=== PATIENT | female | born 1990 | race Caucasian/White ===

== ENCOUNTER 2022-12-24 10:13 | Emergency (ER) | payer BC, SELFPAY ==
--- NOTE | ~2022-12-24 | XR_ITS ---
XR shoulder LT min 2V 12/24/2022 10:46 Indication: Left shoulder pain after fall Procedure: 3 views left shoulder Comparison: No prior studies for comparison. Findings: There is a left humeral neck fracture with involvement of the greater tuberosity. Glenohume ral joint intact. Acromioclavicular joint and anatomic alignment. Mild soft tissue swelling. Impression: 1: Nondisplaced left humeral neck fracture with involvement of the greater tuberosity.. Reviewed, dictated and finalized at location L. Impression: 1: Nondisplaced left humeral neck fracture with involvement of the greater tube rosity..
[2022-12-24 10:19] VITALS: BP 135/100; PULSE 63; RESP 16; TEMP 36.8; O2SAT 100
--- NOTE | 2022-12-24 10:59 | ED.UPPEXIN ---
HPI - Extremity Injury (Upper) General Chief Complaint: Extremity Injury, Upper Stated Complaint: Left shoulder injury Time Seen by Provider: 12/24/22 10:48 Source: patient and RN notes reviewed Mode of arrival: ambulatory Limitations: no limitations History of Present Illness HPI narrative: This is a 32 year old right hand dominant female who presents for evaluation of left shoulder pain. She states that her dog saw a small animal and it pulled her down to the ground. She fell onto her left shoulder. She denies hitting her head or LOC. She denies neck pain. She denies numbness to her fingers. She denies any other injuries Related Data Allergies Allergy/AdvReac Type Severity Reaction Status Date / Time No Known Allergies Allergy Verified 12/24/22 10:21 Review of Systems Constitutional: Constitutional: Denies weakness Cardiovascular: Cardiovascular: Denies syncope, Denies rapid heart rate, Denies irregular heart rhythm, Denies leg edema and Denies dyspnea Respiratory: Respiratory: Denies chest congestion, Denies hemoptysis, Denies excessive phlegm production and Denies dyspnea Gastrointestinal: Gastrointestinal: Denies abdominal pain, Denies hematochezia, Denies diarrhea and Denies vomiting Genitourinary: Genitourinary: Denies hematuria and Denies dysuria Musculoskeletal: Musculoskeletal: Reports arthralgias, Denies joint swelling, Denies loss of height and Denies muscle weakness Neurologic: Denies syncope, Denies focal weakness and Denies weakness PMFSH Past Medical History Medical History (Updated 12/24/22 @ 18:30 by Shanice Velazquez MD) No significant medical problems Surgical History Surgical History (Updated 12/24/22 @ 18:31 by Shanice Velazquez MD) No pertinent past surgical history Social History Social History (Updated 12/24/22 @ 18:31 by Shanice Velazquez MD) Smoking status: Never smoker Exam Const: General: no acute distress and alert Nutritional Appearance: well nourished Orientation/consciousness: patient oriented x3 HENMT: Head: normal to inspection Face and sinus: normal facial exam Mouth: Yes Normal oral and palatal mucosa present and Yes lip normal Throat: posterior oropharynx normal and uvula midline Eyes: EOM: EOMs intact bilaterally Neck: Neck: normal visual inspection and no lymphadenopathy Other: no midline tenderness Chest: Chest palpation & inspection: normal inspection of the chest Resp: Effort & Inspection: normal respiratory effort Auscultation: clear to auscultation bilaterally Cardio: Rate: regular rate Rhythm: regular rhythm Heart sounds: no murmurs Other: strong bilateral radial pulse Skin: General skin exam: normal color Rashes: no rashes Wounds: no wounds Neuro: General: patient oriented x3, moves all extremities and CN's II-XI intact bilaterally Cranial nerves: Yes Nystagmus not present Speech: normal speech Gait exam (Neuro): Normal gait present Extrem: Other: left proximal shoulder tenderness, no deformity, able to move distally Psych: Mental Status: mental status grossly normal Affect: normal affect Attitude: cooperative Course Reevaluation(s) Reevaluation #1: I discussed with patient findings . she does not want IV for pain medication. She just wants oral medications. Date: 12/24/22 Time: 11:01 Consultations Consultation #1: Dr. Simon reviewed films and he states patient can be placed in sling and follow up in clinic Date: 12/24/22 Time: 11:03 Vital Signs Vital signs: Vital Signs Temperature 98.2 F 12/24/22 10:19 Pulse Rate 63 12/24/22 10:19 Respiratory Rate 16 12/24/22 10:19 Blood Pressure 135/100 H 12/24/22 10:19 Pulse Oximetry 100 12/24/22 10:19 Temperature 98.2 F 12/24/22 10:19 Pulse Rate 63 12/24/22 10:19 Respiratory Rate 16 12/24/22 10:19 Blood Pressure 135/100 H 12/24/22 10:19 Pulse Oximetry 100 12/24/22 10:19 MDM - Extremity Injury (Upper) MDM [facility]
[2022-12-24] MEDS: oxyCODONE/ACETAMINOPHEN (*CRX) 5-325 MG TABLET 1 TABLET PO (11:08)
[2022-12-24] MEDS: ONDANSETRON HCL ODT 4 MG TABLET PO (11:09)
[2022-12-24] MEDS: IBUPROFEN 600 MG TABLET PO (11:09)
--- NOTE | 2022-12-24 11:13 | PC.NURSE ---
Report received from Rebecca PARSONS
== END 2022-12-24 13:10 | disposition home or self-care (01) ==
PROVIDERS: Emergency Provider General Practice; PCP Emergency Medicine
DX: S42.295A Other nondisplaced fracture of upper end of left humerus, initial encounter for closed fracture (principal); W18.39XA Other fall on same level, initial encounter; Y93.K1 Activity, walking an animal
CPT/HCPCS: 73030; 99284; A4565; A9270